=== PATIENT | male | born 1960 | race Caucasian/White ===

== ENCOUNTER 2019-12-16 08:38 | Day surgery (SDC) | payer BC ==
[~2019-12-16] VITALS: Ht 175.3 cm; Wt 86.8 kg
[~2019-12-16 08:38] MED LIST: TERB250 PO
== END 2019-12-16 10:15 | disposition home or self-care (01) ==
LOC: ORSCSDS 08:38
PROVIDERS: Internal Medicine Gastroenterology
PROC: 0DBN8ZX Excision of Sigmoid Colon, Via Natural or Artificial Opening Endoscopic, Diagnostic (ICD-10-PCS; principal; 2019-12-16 10:00)
DX: Z12.11 Encounter for screening for malignant neoplasm of colon (principal); D12.5 Benign neoplasm of sigmoid colon; K64.8 Other hemorrhoids; E78.5 Hyperlipidemia, unspecified; Z79.899 Other long term (current) drug therapy
CPT/HCPCS: 88305; J2704; J7120